=== PATIENT | male | born 1995 ===

== ENCOUNTER 2019-07-12 21:11 | Emergency (ER) | payer SELFPAY ==
[2019-07-12 21:33] VITALS: BP 116/71
[2019-07-12] MEDS ORDERED: Tetan/Diph/Pertus SYR(Tdap)* 0.5 ML SYR(BOOSTRIX) use SYR contains LATEX IM ONE (22:03)
--- NOTE | 2019-07-12 22:06 | UC ---
Head Injury HPI - HPI Summary HPI Summary: 24-year-old male comes in with a chief complaint of a laceration to his scalp. Occurred today at work when he accidentally struck his head on an open cabinet. No loss of consciousness. Not sure when his last tetanus was. He noticed some bleeding. Bleeding stopped by direct pressure. Feels well otherwise. - History Of Current Complaint Chief Complaint: UCHeadInjury Stated Complaint: HEAD INJURY Time Seen by Provider: 07/12/19 21:34 Pain Intensity: 1 - Allergies/Home Medications Allergies/Adverse Reactions: Allergies Allergy/AdvReac Type Severity Reaction Status Date / Time No Known Allergies Allergy Verified 07/12/19 21:34 Home Medications: Home Medications Cetirizine* [ZyrTEC 10 MG TAB*] 10 mg PO DAILY 07/12/19 [History Confirmed 07/12] Sertraline* [Zoloft*] 25 mg PO DAILY 07/12/19 [History Confirmed 07/12/19] PMH/Surg Hx/FS Hx/Imm Hx Previously Healthy: Yes - Surgical History Surgical History: Yes Surgery Procedure, Year, and Place: wisdom teeth - Family History Known Family History: Positive: Non-Contributory - Social History Alcohol Use: None Substance Use Type: None Smoking Status (MU): Never Smoked Tobacco Review of Systems All Other Systems Reviewed And Are Negative: Yes Constitutional: Positive: Negative Skin: Positive: Other - SEE HPI Eyes: Positive: Negative ENT: Positive: Negative Respiratory: Positive: Negative Cardiovascular: Positive: Negative Gastrointestinal: Positive: Negative Motor: Positive: Negative Neurovascular: Positive: Negative Musculoskeletal: Positive: Negative Neurological/Mental Status: Positive: Negative Psychological: Positive: Negative Is Patient Immunocompromised?: No Physical Exam Triage Information Reviewed: Yes Appearance: Well-Appearing, No Pain Distress, Well-Nourished Vital Signs: Initial Vital Signs Temp 99.2 F 07/12/19 21:28 Pulse 86 07/12/19 21:28 Resp 16 07/12/19 21:28 BP 116/71 07/12/19 21:28 Pulse Ox 99 07/12/19 21:28 Vital Signs Reviewed: Yes Eye Exam: Normal Neck: Positive: Supple Respiratory: Positive: No respiratory distress Musculoskeletal: Positive: Strength Intact, ROM Intact Neurological: Positive: Alert, Muscle Tone Normal Psychological: Positive: Age Appropriate Behavior Skin: Positive: Other - 1 cm subcutaneous curved laceration on the top of the scalp. I used skin adhesive to close the laceration after nursing had irrigated it. Head Injury Course/Dx - Course Course Of Treatment: I discussed using a staple versus gluing the patient preferred gluing. Patient was given a TDap Here. - Differential Dx/Diagnosis Provider Diagnosis: Scalp laceration Discharge ED - Sign-Out/Discharge Documenting (check all that apply): Patient Departure All imaging exams completed and their final reports reviewed: No Studies - Discharge Plan Condition: Stable Disposition: HOME Patient Education Materials: Laceration (ED), Skin Adhesive Care (ED) [place]: [facility] [[place]] Additional Instructions: FOLLOW UP WITH YOUR DOCTOR IF NOT COMPLETELY IMPROVED. YOU RECEIVED THE TDAP (TETANUS AND DIPTHERIA) IMMUNIZATION TODAY. GET REEVALUATED SOONER IF NOT IMPROVED OR WORSE; SIGNS OF INFECTION OR ANY QUESTIONS OR CONCERNS. - Billing Disposition and Condition Condition: STABLE Disposition: Home
== END 2019-07-12 22:15 | disposition home or self-care (01) ==
LOC: UCEAST 21:11
DX: S01.01XA Laceration without foreign body of scalp, initial encounter (principal); Z23 Encounter for immunization; W22.8XXA Striking against or struck by other objects, initial encounter; Y92.9 Unspecified place or not applicable
CPT/HCPCS: 90715; 99211; G0463